=== PATIENT | male | born 1960 | race Two or more races ===

== ENCOUNTER 2023-03-21 01:06 | Inpatient (IN) | payer OTHER, MEDICAID ==
[2023-03-21] VITALS (63 sets, daily range): BP systolic 89–123; BP diastolic 45–81
[~2023-03-21] VITALS: Ht 170.2 cm; Wt 85.1 kg
[2023-03-21] MEDS ORDERED: FUROSEMIDE 100 MG/10ML VIAL IV ONE (01:15)
[2023-03-21] MEDS ORDERED: hydrALAZINE HCL 20 MG/ML VL IV ONE (01:15)
[2023-03-21] MEDS ORDERED: ALBUTEROL SULF 2.5 MG/0.5ML(0.5%) NEB SOLN NEB ONE (01:30)
[2023-03-21] MEDS ORDERED: IPRATROPIUM BROM 0.5 MG/2.5ML INH SOL NEB ONE (01:30)
[2023-03-21] MEDS ORDERED: DexAMETHasone SOD PHOS 10MG/1ML VIAL INJ IV ONE (01:30)
[2023-03-21] MEDS ORDERED: ROCURONIUM 10MG/ML 10ML VIAL IV ONE ×2 (01:53→02:00)
[2023-03-21] MEDS ORDERED: ETOMIDATE (2MG/ML) 20ML VIAL IV ONE ×2 (01:53→02:00)
[2023-03-21 01:54] LABS: Basophils # (auto) 0 10 ^3/uL (0-0.2); Eosinophils # (auto) 0.2 10 ^3/uL (0-0.8); Eosinophils % (auto) 1.3 % (0.0-7.0); Hemoglobin 13.1 g/dL (13.5-17.5); Lymphocytes # (auto) 5.8 10 ^3/uL (0.4-5.4); Neutrophils # (auto) 10.9 10 ^3/uL (1.6-8.6); Nucleated Red Blood Cells % 0.1 %
[2023-03-21 01:56] LABS: Basophils % (auto) 0.1 % (0.0-2.0); Hematocrit 42.2 % (41.0-53.0); Lymphocytes % (auto) 31.9 % (10.0-50.0); Mean Corpuscular Hemoglobin 25.6 pg (28.0-32.0); Mean Corpuscular Hgb Conc. 31.2 g/dL (32.0-36.0); Mean Corpuscular Volume 82.1 fL (80.0-100.0); Monocytes # (auto) 1.3 10 ^3/uL (0-1.3); Monocytes % (auto) 7.1 % (0.0-12.0); Neutrophils % (auto) 59.6 % (37.0-80.0); Red Blood Cells 5.14 10^6/uL (4.5-5.90); Red Cell Distribution Width 17.3 % (11.8-14.3); White Blood Cell 18.3 10^3/uL (4.4-10.8)
[2023-03-21] MEDS ORDERED: PROPOFOL 100 ML IV ONE (01:58)
[2023-03-21] MEDS: PROPOFOL 100 ML IV SCH ×2 (02:10→17:18)
[2023-03-21] MEDS ORDERED: cefTRIAXone 1GM/50ML D5W 50 ML IV ONE (03:15)
[2023-03-21] MEDS ORDERED: AZITHROMYCIN 500MG/ 250ML 250 ML IV ONE (03:15)
[2023-03-21 03:17] LABS: Albumin 2.7 g/dL (3.4-5.0); BUN/Creatinine Ratio 23.1 (10.0-20.0); INR 1.12 (0.9-1.15); Partial Thromboplastin Time 28.4 SEC (24.5-34.5); Potassium 5.3 mmol/L (3.5-5.1)
[2023-03-21 03:19] LABS: Bilirubin, Total 0.2 mg/dL (0.2-1.0); Total Protein 8.6 g/dL (6.4-8.2)
[2023-03-21] MEDS ORDERED: NOREPINEPHRINE 8 MG/250ML KIT 250 ML IV ONE (04:55)
[2023-03-21] MEDS ORDERED: MIDAZOLAM DRIP 50 mg/50mL 50 ML IV ONE (04:55)
[2023-03-21] MEDS: NOREPINEPHRINE 8 MG/250ML KIT 250 ML IV SCH (05:00)
[2023-03-21] MEDS ORDERED: ALBUMIN 25% 100 ML IV ONE (05:15)
[2023-03-21] MEDS: MIDAZOLAM DRIP 50 mg/50mL 50 ML IV SCH ×3 (05:26→17:18)
[2023-03-21] MEDS ORDERED: SODIUM ZIRCONIUM CYCL 10 GM PAK PO ONE (07:15)
[2023-03-21] MEDS ORDERED: ALBUTEROL SULF 2.5 MG/0.5ML(0.5%) NEB SOLN NEB PRN (07:15)
[2023-03-21] MEDS ORDERED: NITROGLYCERIN 0.4 MG SL TAB SL PRN (07:15)
[2023-03-21] MEDS ORDERED: DEXTROSE (50%) 50ML SYRG IV PRN (07:15)
[2023-03-21] MEDS ORDERED: ACETAMINOPHEN 325 MG TAB PO PRN (07:15)
[2023-03-21] MEDS ORDERED: ALBUMIN 25% 50 ML IV ONE (07:15)
[2023-03-21] MEDS ORDERED: MORPHINE SULFATE INJ 2 MG/ml SYRG IV PRN (07:15)
[2023-03-21] MEDS ORDERED: ONDANSETRON HCL 4 MG/2 ML VIAL IV PRN (07:15)
[2023-03-21 08:00] LABS: Urine Bacteria NONE SEEN /hpf (None Seen); Urine Blood 3+ /uL (Negative); Urine Hyaline Cast MOD /lpf (0 - 2); Urine Mucus FEW (None Seen); Urine Specific Gravity 1.017 (1.001-1.035); Urine WBC 61 /hpf (0 - 3)
[2023-03-21] MEDS: PANTOPRAZOLE 40 MG/10 ML VIAL INJ IV SCH (09:27)
[2023-03-21] MEDS: ENOXAPARIN SOD 40 MG/0.4 ML SYRINGE SC SCH (09:27)
[2023-03-21 11:21] LABS: Basophils # (auto) 0 10 ^3/uL (0-0.2); Basophils % (auto) 0.1 % (0.0-2.0); Eosinophils # (auto) 0 10 ^3/uL (0-0.8); Lymphocytes # (auto) 0.9 10 ^3/uL (0.4-5.4); Lymphocytes % (auto) 4.9 % (10.0-50.0); Nucleated Red Blood Cells % 0.1 %
[2023-03-21 11:22] LABS: Hematocrit 35.1 % (41.0-53.0); Mean Corpuscular Hemoglobin 24.9 pg (28.0-32.0); Mean Corpuscular Hgb Conc. 31.5 g/dL (32.0-36.0); Mean Corpuscular Volume 79.2 fL (80.0-100.0); Monocytes # (auto) 0.2 10 ^3/uL (0-1.3); Neutrophils # (auto) 17.9 10 ^3/uL (1.6-8.6); Red Blood Cells 4.43 10^6/uL (4.5-5.90); Red Cell Distribution Width 16.9 % (11.8-14.3); White Blood Cell 19.1 10^3/uL (4.4-10.8)
[2023-03-21 11:37] LABS: Albumin 2.9 g/dL (3.4-5.0); Calcium 8.3 mg/dL (8.5-10.1)
[2023-03-21 11:40] LABS: BUN/Creatinine Ratio 27.2 (10.0-20.0); Bilirubin, Total 0.3 mg/dL (0.2-1.0); Total Protein 8.2 g/dL (6.4-8.2)
[2023-03-21] MEDS: ACCU-CHEK COMFORT CURVE STRIP VI SCH ×2 (12:11→17:22)
[2023-03-21] MEDS: InsuLIN REG 1unit/0.01ml Soln (100units/ml) SC SCH ×2 (12:15→17:23)
[2023-03-21] MEDS: FUROSEMIDE 20 MG/2 ML VIAL IV SCH (17:19)
[2023-03-22] VITALS (91 sets, daily range): BP systolic 90–157; BP diastolic 44–109
[2023-03-22] MEDS: ACCU-CHEK COMFORT CURVE STRIP VI SCH ×4 (00:15→17:34)
[2023-03-22] MEDS: InsuLIN REG 1unit/0.01ml Soln (100units/ml) SC SCH ×4 (00:16→17:46)
[2023-03-22] MEDS: MIDAZOLAM DRIP 50 mg/50mL 50 ML IV SCH ×2 (00:22→05:42)
[2023-03-22 04:23] LABS: Basophils # (auto) 0 10 ^3/uL (0-0.2); Eosinophils # (auto) 0 10 ^3/uL (0-0.8); Hemoglobin 10.7 g/dL (13.5-17.5); Nucleated Red Blood Cells % 0.1 %; Red Cell Distribution Width 16.7 % (11.8-14.3)
[2023-03-22 04:26] LABS: Basophils % (auto) 0.3 % (0.0-2.0); Hematocrit 33.1 % (41.0-53.0); Lymphocytes # (auto) 1.5 10 ^3/uL (0.4-5.4); Lymphocytes % (auto) 11.7 % (10.0-50.0); Mean Corpuscular Hemoglobin 25.7 pg (28.0-32.0); Mean Corpuscular Hgb Conc. 32.4 g/dL (32.0-36.0); Mean Corpuscular Volume 79.4 fL (80.0-100.0); Monocytes # (auto) 0.8 10 ^3/uL (0-1.3); Monocytes % (auto) 6.5 % (0.0-12.0); Neutrophils # (auto) 10.6 10 ^3/uL (1.6-8.6); Neutrophils % (auto) 81.5 % (37.0-80.0); Red Blood Cells 4.16 10^6/uL (4.5-5.90); White Blood Cell 12.9 10^3/uL (4.4-10.8)
[2023-03-22 04:45] LABS: Potassium 3.3 mmol/L (3.5-5.1)
[2023-03-22] MEDS: NOREPINEPHRINE 8 MG/250ML KIT 250 ML IV SCH (04:47)
[2023-03-22 04:49] LABS: Albumin 2.8 g/dL (3.4-5.0); BUN/Creatinine Ratio 36.5 (10.0-20.0); Calcium 8.3 mg/dL (8.5-10.1)
[2023-03-22 04:52] LABS: Bilirubin, Total 0.3 mg/dL (0.2-1.0); Total Protein 7.4 g/dL (6.4-8.2)
[2023-03-22] MEDS: PROPOFOL 100 ML IV SCH (05:41)
[2023-03-22] MEDS: FUROSEMIDE 20 MG/2 ML VIAL IV SCH ×2 (05:42→17:34)
[2023-03-22] MEDS: cefTRIAXone 1GM/50ML D5W 50 ML IV SCH (09:23)
[2023-03-22] MEDS: ENOXAPARIN SOD 40 MG/0.4 ML SYRINGE SC SCH (09:23)
[2023-03-22] MEDS: PANTOPRAZOLE 40 MG/10 ML VIAL INJ IV SCH (09:24)
[2023-03-22] MEDS: AZITHROMYCIN 500MG/ 250ML 250 ML IV SCH (09:24)
[2023-03-22] MEDS: POTASSIUM CHL 20MEQ/100ML 100 ML IV SCH ×3 (12:55→17:34)
[2023-03-22] MEDS ORDERED: hydrALAZINE HCL 20 MG/ML VL IV PRN (17:45)
[2023-03-23] VITALS (30 sets, daily range): BP systolic 121–158; BP diastolic 60–96
[2023-03-23 03:46] LABS: Basophils # (auto) 0.1 10 ^3/uL (0-0.2); Eosinophils # (auto) 0.1 10 ^3/uL (0-0.8); Lymphocytes # (auto) 1.7 10 ^3/uL (0.4-5.4); Monocytes # (auto) 0.7 10 ^3/uL (0-1.3)
[2023-03-23 03:50] LABS: Basophils % (auto) 0.7 % (0.0-2.0); Eosinophils % (auto) 0.7 % (0.0-7.0); Hematocrit 37.3 % (41.0-53.0); Hemoglobin 11.9 g/dL (13.5-17.5); Mean Corpuscular Hemoglobin 25.5 pg (28.0-32.0); Mean Corpuscular Volume 79.8 fL (80.0-100.0); Monocytes % (auto) 7.6 % (0.0-12.0); Neutrophils # (auto) 6.4 10 ^3/uL (1.6-8.6); Nucleated Red Blood Cells % 0.2 %; Red Blood Cells 4.68 10^6/uL (4.5-5.90); Red Cell Distribution Width 16.9 % (11.8-14.3); White Blood Cell 8.9 10^3/uL (4.4-10.8)
[2023-03-23 04:09] LABS: Calcium 8.4 mg/dL (8.5-10.1); Potassium 3.6 mmol/L (3.5-5.1)
[2023-03-23 04:11] LABS: BUN/Creatinine Ratio 32.8 (10.0-20.0)
[2023-03-23] MEDS: NOREPINEPHRINE 8 MG/250ML KIT 250 ML IV SCH (05:00)
[2023-03-23] MEDS: ACCU-CHEK COMFORT CURVE STRIP VI SCH ×5 (06:12→23:58)
[2023-03-23] MEDS: FUROSEMIDE 20 MG/2 ML VIAL IV SCH ×2 (06:12→17:51)
[2023-03-23] MEDS: InsuLIN REG 1unit/0.01ml Soln (100units/ml) SC SCH ×4 (06:30→17:53)
[2023-03-23] MEDS: PANTOPRAZOLE 40 MG/10 ML VIAL INJ IV SCH (09:19)
[2023-03-23] MEDS: cefTRIAXone 1GM/50ML D5W 50 ML IV SCH (09:19)
[2023-03-23] MEDS: ENOXAPARIN SOD 40 MG/0.4 ML SYRINGE SC SCH (09:20)
[2023-03-23] MEDS: AZITHROMYCIN 500MG/ 250ML 250 ML IV SCH (10:15)
[2023-03-23 14:29] LABS: Cholesterol 119 mg/dL (< 200); HDL Cholesterol 26 mg/dL (40-59); LDL Cholesterol 75 mg/dL (< 100); Triglycerides 143 mg/dL (< 150)
[2023-03-23] MEDS ORDERED: POTA-264 (19:21)
[2023-03-23] MEDS ORDERED: CARV25TA55 PO (19:21)
[2023-03-23] MEDS ORDERED: ASPI1CHW5 PO (19:21)
[2023-03-23] MEDS ORDERED: METF-370 PO (19:21)
[2023-03-24 05:00] VITALS: BP 113/65
[2023-03-24 05:13] LABS: Basophils # (auto) 0 10 ^3/uL (0-0.2); Basophils % (auto) 0.2 % (0.0-2.0); Eosinophils # (auto) 0 10 ^3/uL (0-0.8); Eosinophils % (auto) 0.2 % (0.0-7.0)
[2023-03-24 05:15] LABS: Hematocrit 39.1 % (41.0-53.0); Hemoglobin 12.4 g/dL (13.5-17.5); Lymphocytes # (auto) 1.5 10 ^3/uL (0.4-5.4); Lymphocytes % (auto) 8.9 % (10.0-50.0); Mean Corpuscular Hemoglobin 25.6 pg (28.0-32.0); Mean Corpuscular Hgb Conc. 31.6 g/dL (32.0-36.0); Mean Corpuscular Volume 81.1 fL (80.0-100.0); Monocytes # (auto) 0.9 10 ^3/uL (0-1.3); Monocytes % (auto) 5.1 % (0.0-12.0); Neutrophils # (auto) 14.7 10 ^3/uL (1.6-8.6); Neutrophils % (auto) 85.6 % (37.0-80.0); Red Blood Cells 4.82 10^6/uL (4.5-5.90); Red Cell Distribution Width 17.1 % (11.8-14.3); White Blood Cell 17.1 10^3/uL (4.4-10.8)
[2023-03-24 05:30] LABS: Calcium 8.6 mg/dL (8.5-10.1); Potassium 3.2 mmol/L (3.5-5.1)
[2023-03-24] MEDS: ACCU-CHEK COMFORT CURVE STRIP VI SCH ×3 (05:50→18:06)
[2023-03-24] MEDS: InsuLIN REG 1unit/0.01ml Soln (100units/ml) SC SCH ×4 (05:56→18:07)
[2023-03-24] MEDS: FUROSEMIDE 20 MG/2 ML VIAL IV SCH ×2 (05:56→18:10)
[2023-03-24] MEDS ORDERED: REGADENOSON 0.4 MG/5 ML SYRG IV ONE ×2 (08:00)
[2023-03-24 09:04] VITALS: BP 110/67
[2023-03-24] MEDS: cefTRIAXone 1GM/50ML D5W 50 ML IV SCH (09:36)
[2023-03-24] MEDS: ENOXAPARIN SOD 40 MG/0.4 ML SYRINGE SC SCH (10:36)
[2023-03-24] MEDS: PANTOPRAZOLE 40 MG/10 ML VIAL INJ IV SCH (10:36)
[2023-03-24] MEDS: AZITHROMYCIN 500MG/ 250ML 250 ML IV SCH (10:36)
[2023-03-24 14:46] VITALS: BP 110/67
[2023-03-24 16:48] VITALS: BP 126/80
[2023-03-24 21:59] VITALS: BP 125/70
[2023-03-25] MEDS: ACCU-CHEK COMFORT CURVE STRIP VI SCH ×3 (01:15→11:35)
[2023-03-25] MEDS: InsuLIN REG 1unit/0.01ml Soln (100units/ml) SC SCH ×3 (01:16→11:44)
[2023-03-25 05:00] VITALS: BP 100/64
[2023-03-25 05:16] LABS: Basophils # (auto) 0 10 ^3/uL (0-0.2); Eosinophils # (auto) 0.2 10 ^3/uL (0-0.8); Lymphocytes # (auto) 1.7 10 ^3/uL (0.4-5.4); White Blood Cell 8.6 10^3/uL (4.4-10.8)
[2023-03-25 05:19] LABS: Basophils % (auto) 0.6 % (0.0-2.0); Eosinophils % (auto) 2.5 % (0.0-7.0); Hematocrit 36.3 % (41.0-53.0); Hemoglobin 11.8 g/dL (13.5-17.5); Lymphocytes % (auto) 20.4 % (10.0-50.0); Mean Corpuscular Hemoglobin 25.6 pg (28.0-32.0); Mean Corpuscular Hgb Conc. 32.6 g/dL (32.0-36.0); Mean Corpuscular Volume 78.4 fL (80.0-100.0); Monocytes # (auto) 0.8 10 ^3/uL (0-1.3); Neutrophils # (auto) 5.8 10 ^3/uL (1.6-8.6); Neutrophils % (auto) 67.5 % (37.0-80.0); Red Blood Cells 4.62 10^6/uL (4.5-5.90); Red Cell Distribution Width 16.8 % (11.8-14.3)
[2023-03-25 05:44] LABS: Potassium 3.2 mmol/L (3.5-5.1)
[2023-03-25] MEDS: FUROSEMIDE 20 MG/2 ML VIAL IV SCH (05:44)
[2023-03-25 05:50] LABS: BUN/Creatinine Ratio 28.4 (10.0-20.0); Calcium 8.7 mg/dL (8.5-10.1)
[2023-03-25] MEDS: cefTRIAXone 1GM/50ML D5W 50 ML IV SCH (08:57)
[2023-03-25 09:00] VITALS: BP 124/76
[2023-03-25] MEDS: ENOXAPARIN SOD 40 MG/0.4 ML SYRINGE SC SCH (11:35)
[2023-03-25] MEDS: AZITHROMYCIN 500MG/ 250ML 250 ML IV SCH (11:35)
[2023-03-25] MEDS: PANTOPRAZOLE 40 MG/10 ML VIAL INJ IV SCH (11:35)
[2023-03-25] MEDS ORDERED: POTASSIUM CHL 20 Meq TABLET PO ONE (12:45)
[2023-03-25 13:00] VITALS: BP 117/76
[2023-03-25] MEDS ORDERED: AZIT-81 PO (13:18)
[2023-03-25 14:15] VITALS: BP 108/64
== END 2023-03-25 17:25 | disposition home or self-care (01) | DRG 208 ==
LOC: ER 01:06 → EDBD 01:06 → TELE 07:10 → ICU WEST 09:57 → TELE-EAST 03-23 18:20
PROVIDERS: ADMIT Nurse Practitioner; ATTEND Internal Medicine Pulmonary Disease
PROC: 5A1945Z Respiratory Ventilation, 24-96 Consecutive Hours (ICD-10-PCS; principal; 2023-03-21)
PROC: 0BH17EZ Insertion of Endotracheal Airway into Trachea, Via Natural or Artificial Opening (ICD-10-PCS; 2023-03-21)
PROC: 5A09357 Assistance with Respiratory Ventilation, Less than 24 Consecutive Hours, Continuous Positive Airway Pressure (ICD-10-PCS; 2023-03-21)
DX: J96.21 Acute and chronic respiratory failure with hypoxia (principal); J18.9 Pneumonia, unspecified organism; I50.23 Acute on chronic systolic (congestive) heart failure; J44.0 Chronic obstructive pulmonary disease with (acute) lower respiratory infection; J96.22 Acute and chronic respiratory failure with hypercapnia; I16.0 Hypertensive urgency; I11.0 Hypertensive heart disease with heart failure; E11.9 Type 2 diabetes mellitus without complications; E78.5 Hyperlipidemia, unspecified; R31.9 Hematuria, unspecified; D64.9 Anemia, unspecified; I25.10 Atherosclerotic heart disease of native coronary artery without angina pectoris; Z95.1 Presence of aortocoronary bypass graft
CPT/HCPCS: 31500; 36415; 36600; 71045; 78452; 80048; 80053; 80061; 81001; 82805; 82962; 83036; 83605; 83735; 83880; 84443; 84484; 85025; 85610; 85730; 87040; 87070; 87077; 87081; 87186; 87205; 92610; 93005; 93017; 93306; 94002; 94003; 94640; 94660; 96365; 96366; 96367; 96368; 96372; 96375; 97110; 97116; 97163; 97530; 99291; C9113; G0378; J0696; J1100; J1815; J2250; J2704; J3480; P9047

== ENCOUNTER 2023-04-07 15:03 | Inpatient (IN) | payer OTHER, MEDICAID ==
[~2023-04-07] VITALS: Ht 170.2 cm; Wt 82.2 kg
[~2023-04-07 15:03] MED LIST: ASPI1CHW5 PO; CARV25TA55 PO; METF-370 PO; POTA-264
[2023-04-07] MEDS ORDERED: ASPirin 325 MG TAB PO ONE (15:15)
[2023-04-07 15:36] LABS: Basophils # (auto) 0.1 10 ^3/uL (0-0.2); Eosinophils # (auto) 0.2 10 ^3/uL (0-0.8)
[2023-04-07 15:38] LABS: Basophils % (auto) 0.6 % (0.0-2.0); Eosinophils % (auto) 2.2 % (0.0-7.0); Hematocrit 33.5 % (41.0-53.0); Hemoglobin 10.9 g/dL (13.5-17.5); Lymphocytes # (auto) 1.4 10 ^3/uL (0.4-5.4); Lymphocytes % (auto) 15.3 % (10.0-50.0); Mean Corpuscular Hemoglobin 26.3 pg (28.0-32.0); Mean Corpuscular Hgb Conc. 32.5 g/dL (32.0-36.0); Mean Corpuscular Volume 80.8 fL (80.0-100.0); Monocytes # (auto) 0.7 10 ^3/uL (0-1.3); Monocytes % (auto) 7.5 % (0.0-12.0); Neutrophils # (auto) 6.7 10 ^3/uL (1.6-8.6); Neutrophils % (auto) 74.4 % (37.0-80.0); Nucleated Red Blood Cells % 0.1 %; Red Blood Cells 4.15 10^6/uL (4.5-5.90); Red Cell Distribution Width 18.5 % (11.8-14.3); White Blood Cell 9.1 10^3/uL (4.4-10.8)
[2023-04-07] MEDS ORDERED: NITROGLYCERIN 0.4 MG SL TAB SL ONE (15:45)
[2023-04-07 15:56] LABS: Albumin 3.2 g/dL (3.4-5.0); Calcium 8.1 mg/dL (8.5-10.1); Potassium 4.1 mmol/L (3.5-5.1)
[2023-04-07 15:58] LABS: BUN/Creatinine Ratio 23.9 (10.0-20.0)
[2023-04-07 16:01] LABS: Bilirubin, Total 0.2 mg/dL (0.2-1.0); Total Protein 7.3 g/dL (6.4-8.2)
[2023-04-07] MEDS ORDERED: ACETAMINOPHEN 325 MG TAB PO PRN (22:45)
[2023-04-07] MEDS ORDERED: DOCUSATE SOD 100 MG CAP PO PRN (22:45)
[2023-04-07] MEDS ORDERED: ONDANSETRON HCL 4 MG/2 ML VIAL IV PRN (22:45)
[2023-04-07] MEDS ORDERED: MORPHINE SULFATE INJ 2 MG/ml SYRG IV PRN ×2 (22:45→23:30)
[2023-04-07] MEDS ORDERED: NITROGLYCERIN 0.4 MG SL TAB SL PRN (23:30)
[2023-04-08] MEDS: HYDROcodone-ACET 5/325MG TAB PO PRN (04:16)
[2023-04-08] MEDS: SODIUM CHLOR 0.9% PF (SALINE LOCK) 10ML VIAL/SYR IV SCH ×3 (06:00→22:52)
[2023-04-08 06:48] LABS: Basophils # (auto) 0.1 10 ^3/uL (0-0.2); Basophils % (auto) 0.8 % (0.0-2.0); Eosinophils # (auto) 0.1 10 ^3/uL (0-0.8); Eosinophils % (auto) 1.1 % (0.0-7.0); Hematocrit 37.1 % (41.0-53.0); Hemoglobin 11.9 g/dL (13.5-17.5); Lymphocytes # (auto) 1.1 10 ^3/uL (0.4-5.4); Lymphocytes % (auto) 9.4 % (10.0-50.0); Mean Corpuscular Hemoglobin 25.7 pg (28.0-32.0); Mean Corpuscular Hgb Conc. 32.2 g/dL (32.0-36.0); Mean Corpuscular Volume 79.7 fL (80.0-100.0); Monocytes # (auto) 0.7 10 ^3/uL (0-1.3); Monocytes % (auto) 6.2 % (0.0-12.0); Neutrophils # (auto) 9.9 10 ^3/uL (1.6-8.6); Neutrophils % (auto) 82.5 % (37.0-80.0); Red Blood Cells 4.65 10^6/uL (4.5-5.90)
[2023-04-08 07:21] LABS: Albumin 3.4 g/dL (3.4-5.0); Calcium 8.4 mg/dL (8.5-10.1); Potassium 4.7 mmol/L (3.5-5.1)
[2023-04-08 07:24] LABS: BUN/Creatinine Ratio 15.1 (10.0-20.0); Bilirubin, Total 0.4 mg/dL (0.2-1.0)
[2023-04-08 07:25] VITALS: PULSE 122; RESP 16; O2SAT 98
[2023-04-08] MEDS: CARVEDILOL 12.5 MG TAB PO SCH ×2 (09:51→22:52)
[2023-04-08] MEDS: ASPirin 81 mg TAB PO SCH (09:51)
[2023-04-08 19:55] VITALS: PULSE 100; RESP 22; O2SAT 97
[2023-04-08] MEDS ORDERED: IOHEXOL 350 MG/ML 100ML IJ ONE (20:29)
[2023-04-08] MEDS: ATORVASTATIN 20 MG TAB PO SCH (22:51)
[2023-04-09] MEDS: SODIUM CHLOR 0.9% PF (SALINE LOCK) 10ML VIAL/SYR IV SCH ×3 (06:12→21:13)
[2023-04-09 08:43] LABS: Urine Bacteria NONE SEEN /hpf (None Seen); Urine Blood Negative /uL (Negative); Urine Specific Gravity 1.035 (1.001-1.035); Urine WBC <1 /hpf (0 - 3)
[2023-04-09 08:55] VITALS: PULSE 80; RESP 16
[2023-04-09] MEDS: CARVEDILOL 12.5 MG TAB PO SCH ×2 (11:19→21:12)
[2023-04-09] MEDS: ASPirin 81 mg TAB PO SCH (11:19)
[2023-04-09 11:20] VITALS: PULSE 86; RESP 18; O2SAT 96
[2023-04-09] MEDS: ENOXAPARIN SOD 40 MG/0.4 ML SYRINGE SC SCH (12:15)
[2023-04-09 12:59] VITALS: BP 112/66; PULSE 72; RESP 20; TEMP 97.2; O2SAT 98
[2023-04-09 14:06] LABS: INR 1.12 (0.9-1.15); Partial Thromboplastin Time 25.1 SEC (24.5-34.5)
[2023-04-09 17:00] VITALS: BP 95/45; PULSE 77; RESP 14; TEMP 97.3; O2SAT 98
[2023-04-09] MEDS: FUROSEMIDE 20 MG/2 ML VIAL IV SCH (18:17)
[2023-04-09 20:00] VITALS: BP 120/77; PULSE 76; PULSE 84; RESP 19; TEMP 97.8; O2SAT 98
[2023-04-09] MEDS: ATORVASTATIN 20 MG TAB PO SCH (21:12)
[2023-04-09 22:00] VITALS: BP 120/77; PULSE 76; RESP 19; TEMP 97.8; O2SAT 98
[2023-04-10] VITALS (10 sets, daily range): BP systolic 99–134; BP diastolic 51–85; PULSE 62–76; RESP 12–26; TEMP 97.2–98.2; O2SAT 94–99
[2023-04-10] MEDS: EMPAGLIFLOZIN 10 MG TAB PO SCH (06:06)
[2023-04-10] MEDS: SODIUM CHLOR 0.9% PF (SALINE LOCK) 10ML VIAL/SYR IV SCH ×3 (06:08→22:32)
[2023-04-10] MEDS: ASPirin 81 mg TAB PO SCH (10:00)
[2023-04-10] MEDS: POTASSIUM CHL 10 Meq TABLET PO SCH (10:00)
[2023-04-10] MEDS: CARVEDILOL 12.5 MG TAB PO SCH ×2 (10:00→22:31)
[2023-04-10] MEDS: ENOXAPARIN SOD 40 MG/0.4 ML SYRINGE SC SCH (10:00)
[2023-04-10] MEDS: FUROSEMIDE 20 MG/2 ML VIAL IV SCH (10:00)
[2023-04-10] MEDS ORDERED: IODIXANOL 320MG/ML 100ML BTL IV ONE ×2 (10:17→11:03)
[2023-04-10] MEDS ORDERED: LIDOCAINE 2%HCL (LOCAL ANESTH.) INJ 20ML MDV ONE (10:17)
[2023-04-10] MEDS ORDERED: ANGIOMAX 250 MG VIAL IV ONE (10:19)
[2023-04-10] MEDS ORDERED: fentaNYL CITRATE 100 MCG/2 ML VL ONE (10:19)
[2023-04-10] MEDS ORDERED: MIDAZOLAM HCL 2MG/2ML 2ml VIAL (1mg/ml) ONE (10:19)
[2023-04-10] MEDS ORDERED: SODIUM CHL 0.9% 0 ML ONE (10:19)
[2023-04-10] MEDS: HYDROcodone-ACET 5/325MG TAB PO PRN (20:57)
[2023-04-10] MEDS: ATORVASTATIN 20 MG TAB PO SCH (22:32)
[2023-04-11 05:52] VITALS: BP_SYST 103; BP_SYST 154; BP_DIAS 71; BP_DIAS 77; PULSE 63; PULSE 73; RESP 18; TEMP 98; TEMP 98.6; O2SAT 95; O2SAT 99
[2023-04-11] MEDS: SODIUM CHLOR 0.9% PF (SALINE LOCK) 10ML VIAL/SYR IV SCH ×2 (07:02→15:15)
[2023-04-11] MEDS: EMPAGLIFLOZIN 10 MG TAB PO SCH (07:02)
[2023-04-11 08:00] VITALS: PULSE 72; PULSE 76; RESP 18; O2SAT 96
[2023-04-11 09:00] VITALS: BP 143/71; PULSE 72; RESP 18; TEMP 97.3; O2SAT 96
[2023-04-11] MEDS: ASPirin 81 mg TAB PO SCH (09:13)
[2023-04-11] MEDS: ENOXAPARIN SOD 40 MG/0.4 ML SYRINGE SC SCH (09:13)
[2023-04-11] MEDS: FUROSEMIDE 20 MG/2 ML VIAL IV SCH (09:13)
[2023-04-11] MEDS: CARVEDILOL 12.5 MG TAB PO SCH (09:13)
[2023-04-11] MEDS: POTASSIUM CHL 10 Meq TABLET PO SCH (09:14)
[2023-04-11] MEDS ORDERED: ATOR20TA PO (10:50)
[2023-04-11] MEDS ORDERED: FURO1TAB33 PO (10:50)
[2023-04-11] MEDS ORDERED: EMPA1TAB PO (10:50)
[2023-04-11 13:00] VITALS: BP 114/80; PULSE 72; RESP 16; TEMP 97.8; O2SAT 97
[2023-04-11 13:39] VITALS: BP 114/80; PULSE 72; RESP 16; TEMP 97.8; O2SAT 97
== END 2023-04-11 15:08 | disposition home or self-care (01) | DRG 286 ==
LOC: ER 15:03 → TELE 23:30 → TELE-EAST 04-09 10:18
PROVIDERS: ADMIT Family Medicine; ATTEND Family Medicine
PROC: 4A023N7 Measurement of Cardiac Sampling and Pressure, Left Heart, Percutaneous Approach (ICD-10-PCS; principal; 2023-04-10)
PROC: B211YZZ Fluoroscopy of Multiple Coronary Arteries using Other Contrast (ICD-10-PCS; 2023-04-10)
PROC: B215YZZ Fluoroscopy of Left Heart using Other Contrast (ICD-10-PCS; 2023-04-10)
PROC: B41FYZZ Fluoroscopy of Right Lower Extremity Arteries using Other Contrast (ICD-10-PCS; 2023-04-10)
PROC: B212YZZ Fluoroscopy of Single Coronary Artery Bypass Graft using Other Contrast (ICD-10-PCS; 2023-04-10)
PROC: B218YZZ Fluoroscopy of Left Internal Mammary Bypass Graft using Other Contrast (ICD-10-PCS; 2023-04-10)
PROC: B310YZZ Fluoroscopy of Thoracic Aorta using Other Contrast (ICD-10-PCS; 2023-04-10)
DX: I25.110 Atherosclerotic heart disease of native coronary artery with unstable angina pectoris (principal); I50.23 Acute on chronic systolic (congestive) heart failure; I24.9 Acute ischemic heart disease, unspecified; E78.00 Pure hypercholesterolemia, unspecified; E78.5 Hyperlipidemia, unspecified; E11.9 Type 2 diabetes mellitus without complications; I11.0 Hypertensive heart disease with heart failure; E66.9 Obesity, unspecified; Z83.2 Family history of diseases of the blood and blood-forming organs and certain disorders involving the immune mechanism; Z95.1 Presence of aortocoronary bypass graft; Z98.61 Coronary angioplasty status; Z68.28 Body mass index [BMI] 28.0-28.9, adult
CPT/HCPCS: 36415; 71045; 71275; 75600; 75710; 80053; 81001; 83880; 84484; 85025; 85379; 85610; 85730; 87081; 93005; 93459; 93970; 96374; 99152; G0378; J2250; Q9967

== ENCOUNTER 2023-09-26 14:20 | Inpatient (IN) | payer OTHER, MEDICAID ==
[~2023-09-26] VITALS: Ht 170.2 cm; Wt 91.8 kg
[~2023-09-26 14:20] MED LIST changes: +ATOR20TA PO; +EMPA1TAB PO; +FURO1TAB33 PO
[2023-09-26 16:05] LABS: Basophils # (auto) 0.1 10 ^3/uL (0-0.2); Basophils % (auto) 0.4 % (0.0-2.0); Eosinophils # (auto) 0.1 10 ^3/uL (0-0.8); Eosinophils % (auto) 0.6 % (0.0-7.0); Hematocrit 36.4 % (41.0-53.0); Hemoglobin 11.7 g/dL (13.5-17.5); Lymphocytes # (auto) 1.6 10 ^3/uL (0.4-5.4); Lymphocytes % (auto) 9.3 % (10.0-50.0); Mean Corpuscular Hemoglobin 26.1 pg (28.0-32.0); Mean Corpuscular Hgb Conc. 32.2 g/dL (32.0-36.0); Mean Corpuscular Volume 80.8 fL (80.0-100.0); Monocytes # (auto) 0.7 10 ^3/uL (0-1.3); Monocytes % (auto) 3.7 % (0.0-12.0); Neutrophils # (auto) 15.2 10 ^3/uL (1.6-8.6); Nucleated Red Blood Cells % 0.1 %; Red Blood Cells 4.51 10^6/uL (4.5-5.90); Red Cell Distribution Width 17.4 % (11.8-14.3); White Blood Cell 17.6 10^3/uL (4.4-10.8)
[2023-09-26 16:20] LABS: Albumin 4.2 g/dL (3.2-4.8); Alkaline Phosphatase 112 U/L (46-116); Anion Gap 10 (5-15); Aspartate Aminotransferase 13 U/L (13-40); BUN/Creatinine Ratio 14.8 (10.0-20.0); Blood Urea Nitrogen 13 mg/dL (9-23); Calcium 9.2 mg/dL (8.5-10.1); Carbon Dioxide 26 mmol/L (20-30); Chloride 99 mmol/L (98-107); Glucose 218 mg/dL (74-106); Potassium 3.8 mmol/L (3.5-5.1); Sodium 135 mmol/L (136-145)
[2023-09-26 16:21] LABS: Bilirubin, Total 0.4 mg/dL (0.2-1.0)
[2023-09-26 16:22] LABS: Alanine Aminotransferase < 9 U/L (7-40)
[2023-09-26 16:29] LABS: CRP High Sensitivity 9.51 mg/dL (<1.0)
[2023-09-26] MEDS ORDERED: FUROSEMIDE 40 MG/4 ML VIAL IV ONE (16:30)
[2023-09-26 16:39] LABS: Magnesium 2.1 mg/dL (1.6-2.6)
[2023-09-26] MEDS ORDERED: PIPERACILLIN-TAZOB 3.375GM 100 ML IV ONE (17:00)
[2023-09-26] MEDS ORDERED: DEXTROSE (50%) 50ML SYRG IV PRN (18:45)
[2023-09-26 21:30] LABS: Urine Bacteria FEW /hpf (None Seen); Urine Blood Negative /uL (Negative); Urine Clarity Clear (Clear); Urine Color Colorless (Yellow); Urine Protein, UAD Negative (Negative); Urine Specific Gravity 1.032 (1.001-1.035); Urine Urobilinogen Normal (Negative); Urine WBC 2 /hpf (0 - 3)
[2023-09-26] MEDS: ACCU-CHEK COMFORT CURVE STRIP VI SCH (21:32)
[2023-09-26] MEDS: cefTRIAXone 1GM/50ML D5W 50 ML IV SCH (21:46)
[2023-09-26] MEDS: SACUBITRIL-VALSARTAN 24mg/26mg TAB PO SCH (21:48)
[2023-09-26] MEDS: CARVEDILOL 12.5 MG TAB PO SCH (21:49)
[2023-09-26] MEDS: InsuLIN REG 1unit/0.01ml Soln (100units/ml) SC SCH (21:50)
[2023-09-26] MEDS: AZITHROMYCIN 500MG/ 250ML 250 ML IV SCH (21:57)
[2023-09-27] VITALS (10 sets, daily range): BP systolic 117–128; BP diastolic 72–83; PULSE 76–90; RESP 16–21; TEMP 97–97.8; O2SAT 94–99
[2023-09-27] MEDS ORDERED: MORPHINE SULFATE INJ 2 MG/ml SYRG IV ONE (01:30)
[2023-09-27] MEDS ORDERED: ONDANSETRON HCL 4 MG/2 ML VIAL IV ONE (01:30)
[2023-09-27 05:15] LABS: Basophils # (auto) 0 10 ^3/uL (0-0.2); Basophils % (auto) 0.5 % (0.0-2.0); Eosinophils # (auto) 0.1 10 ^3/uL (0-0.8); Eosinophils % (auto) 1.4 % (0.0-7.0); Hematocrit 35.7 % (41.0-53.0); Hemoglobin 11.5 g/dL (13.5-17.5); Lymphocytes # (auto) 1.4 10 ^3/uL (0.4-5.4); Lymphocytes % (auto) 14.2 % (10.0-50.0); Mean Corpuscular Hemoglobin 26.1 pg (28.0-32.0); Mean Corpuscular Hgb Conc. 32.1 g/dL (32.0-36.0); Mean Corpuscular Volume 81.1 fL (80.0-100.0); Monocytes # (auto) 0.7 10 ^3/uL (0-1.3); Monocytes % (auto) 7.1 % (0.0-12.0); Neutrophils # (auto) 7.4 10 ^3/uL (1.6-8.6); Neutrophils % (auto) 76.8 % (37.0-80.0); Red Cell Distribution Width 17.1 % (11.8-14.3); White Blood Cell 9.6 10^3/uL (4.4-10.8)
[2023-09-27 05:26] LABS: Albumin 3.7 g/dL (3.2-4.8); Alkaline Phosphatase 95 U/L (46-116); Anion Gap 8 (5-15); Aspartate Aminotransferase 12 U/L (13-40); BUN/Creatinine Ratio 19.5 (10.0-20.0); Bilirubin, Total 0.3 mg/dL (0.2-1.0); Blood Urea Nitrogen 16 mg/dL (9-23); Calcium 8.8 mg/dL (8.5-10.1); Carbon Dioxide 27 mmol/L (20-30); Chloride 102 mmol/L (98-107); Glucose 161 mg/dL (74-106); Potassium 3.7 mmol/L (3.5-5.1); Sodium 137 mmol/L (136-145); Total Protein 7.4 g/dL (5.7-8.2)
[2023-09-27 05:28] LABS: Alanine Aminotransferase 9 U/L (7-40)
[2023-09-27] MEDS: FUROSEMIDE 20 MG/2 ML VIAL IV SCH ×2 (06:00→18:19)
[2023-09-27] MEDS: ACCU-CHEK COMFORT CURVE STRIP VI SCH ×4 (06:57→21:16)
[2023-09-27] MEDS: InsuLIN REG 1unit/0.01ml Soln (100units/ml) SC SCH ×4 (06:58→21:25)
[2023-09-27] MEDS ORDERED: SACU1TAB PO (10:04)
[2023-09-27] MEDS ORDERED: EMPA1TAB3 PO (10:04)
[2023-09-27] MEDS ORDERED: POTA10TA51 PO (10:04)
[2023-09-27] MEDS ORDERED: ASPI-543 PO (10:04)
[2023-09-27] MEDS: cefTRIAXone 1GM/50ML D5W 50 ML IV SCH (11:30)
[2023-09-27] MEDS: ASPirin 81 mg TAB PO SCH (11:31)
[2023-09-27] MEDS: SACUBITRIL-VALSARTAN 24mg/26mg TAB PO SCH ×2 (11:31→21:15)
[2023-09-27] MEDS: CARVEDILOL 12.5 MG TAB PO SCH ×2 (11:32→21:15)
[2023-09-27] MEDS: AZITHROMYCIN 500MG/ 250ML 250 ML IV SCH (20:47)
[2023-09-27] MEDS ORDERED: ATORVASTATIN 20 MG TAB PO SCH (22:00)
[2023-09-28 05:00] VITALS: BP 99/64; PULSE 72; RESP 20; TEMP 97.7; O2SAT 98
[2023-09-28 05:54] LABS: Eosinophils # (auto) 0.1 10 ^3/uL (0-0.8); Hemoglobin 12.2 g/dL (13.5-17.5); Lymphocytes # (auto) 1.5 10 ^3/uL (0.4-5.4); Red Cell Distribution Width 17.3 % (11.8-14.3)
[2023-09-28 05:57] LABS: Basophils # (auto) 0 10 ^3/uL (0-0.2); Basophils % (auto) 0.6 % (0.0-2.0); Hematocrit 38.3 % (41.0-53.0); Lymphocytes % (auto) 20.4 % (10.0-50.0); Mean Corpuscular Hgb Conc. 31.7 g/dL (32.0-36.0); Mean Corpuscular Volume 82.1 fL (80.0-100.0); Monocytes # (auto) 0.7 10 ^3/uL (0-1.3); Monocytes % (auto) 9.5 % (0.0-12.0); Neutrophils # (auto) 5.1 10 ^3/uL (1.6-8.6); Neutrophils % (auto) 67.5 % (37.0-80.0); Nucleated Red Blood Cells % 0.1 %; Red Blood Cells 4.67 10^6/uL (4.5-5.90); White Blood Cell 7.5 10^3/uL (4.4-10.8)
[2023-09-28 06:00] LABS: Albumin 3.7 g/dL (3.2-4.8); Alkaline Phosphatase 91 U/L (46-116); Anion Gap 8 (5-15); Aspartate Aminotransferase 16 U/L (13-40); BUN/Creatinine Ratio 16.9 (10.0-20.0); Bilirubin, Total 0.3 mg/dL (0.2-1.0); Blood Urea Nitrogen 12 mg/dL (9-23); Carbon Dioxide 25 mmol/L (20-30); Chloride 104 mmol/L (98-107); Glucose 122 mg/dL (74-106); Potassium 3.7 mmol/L (3.5-5.1); Sodium 137 mmol/L (136-145); Total Protein 7.4 g/dL (5.7-8.2)
[2023-09-28] MEDS: FUROSEMIDE 20 MG/2 ML VIAL IV SCH (06:00)
[2023-09-28 06:10] LABS: Alanine Aminotransferase < 9 U/L (7-40)
[2023-09-28] MEDS: ACCU-CHEK COMFORT CURVE STRIP VI SCH ×2 (06:28→12:01)
[2023-09-28] MEDS: InsuLIN REG 1unit/0.01ml Soln (100units/ml) SC SCH ×2 (06:36→12:01)
[2023-09-28 08:00] VITALS: PULSE 66; PULSE 68; O2SAT 96
[2023-09-28 08:29] LABS: Hepatitis B Surface Antigen Negative (Negative)
[2023-09-28 08:51] LABS: Hepatitis C Antibody Negative (Negative)
[2023-09-28 09:01] VITALS: BP 122/71; PULSE 69; RESP 18; TEMP 97.9; O2SAT 95
[2023-09-28] MEDS ORDERED: CARV3.1240 PO (09:28)
[2023-09-28] MEDS ORDERED: IBUP1TAB5 PO (09:28)
[2023-09-28] MEDS ORDERED: PANT40T PO (09:28)
[2023-09-28] MEDS: ASPirin 81 mg TAB PO SCH (09:54)
[2023-09-28] MEDS: cefTRIAXone 1GM/50ML D5W 50 ML IV SCH (09:54)
[2023-09-28] MEDS: CARVEDILOL 12.5 MG TAB PO SCH (09:54)
[2023-09-28] MEDS: SACUBITRIL-VALSARTAN 24mg/26mg TAB PO SCH (09:54)
[2023-09-28 11:56] VITALS: BP 94/52; PULSE 64; RESP 20; TEMP 97.7; O2SAT 98
[2023-09-28 12:58] VITALS: BP 94/52; PULSE 64; RESP 20; TEMP 97.7; O2SAT 98
[2023-09-28] MEDS ORDERED: AZITHROMYCIN 250 MG TAB PO SCH (21:00)
== END 2023-09-28 15:22 | disposition home or self-care (01) | DRG 177 ==
LOC: ER 14:20 → TELE 18:44 → TELE-CENTR 09-27 09:09
PROVIDERS: ADMIT Internal Medicine Geriatric Medicine; ATTEND Internal Medicine Geriatric Medicine
DX: J15.69 Pneumonia due to other Gram-negative bacteria (principal); I50.41 Acute combined systolic (congestive) and diastolic (congestive) heart failure; J15.9 Unspecified bacterial pneumonia; I25.10 Atherosclerotic heart disease of native coronary artery without angina pectoris; E11.65 Type 2 diabetes mellitus with hyperglycemia; D72.829 Elevated white blood cell count, unspecified; E78.5 Hyperlipidemia, unspecified; Z95.1 Presence of aortocoronary bypass graft
CPT/HCPCS: 36415; 71045; 80053; 81001; 82962; 83036; 83605; 83735; 83880; 84484; 85025; 86141; 86803; 87040; 87340; 93306; 93970; G0378; J1815; J2543

== ENCOUNTER 2025-09-06 10:31 | Emergency (ER) | payer OTHER, MEDICAID ==
[~2025-09-06] VITALS: Ht 170.2 cm; Wt 101.3 kg
[~2025-09-06 10:31] MED LIST changes: +ASPI-543 PO; -ASPI1CHW5 PO; -ATOR20TA PO; -CARV25TA55 PO; +CARV3.1240 PO; -EMPA1TAB PO; +EMPA1TAB3 PO; +IBUP1TAB5 PO; -METF-370 PO; +PANT40T PO; -POTA-264; +POTA-36 PO; +SACU1TAB PO
--- NOTE | 2025-09-06 15:25 | ED.PDOC ---
History of Present Illness HPI Comments 64 y.o male with PMHx of DM, CHF, HTN, presents to the ED for a chief complaint of a sore throat x 3 days. Patient reports pain has increased to a 10/10 and is feeling general malaise. He denies any fever, chills, nausea, vomiting or SOB. Chief Complaint: Flu like Time Seen by MD: 14:48 Primary Care Provider: ALVINO DILLARD Reviewed Notes: Nurses Notes, Medications, Allergies Allergies: Coded Allergies: NO KNOWN ALLERGIES (Unverified , 03/21/23) Home Meds Active Scripts Furosemide (Lasix) 20 Mg Tb, 1 TAB PO DAILY, #90 TAB 1 Refill Prov:STEVIE JOSEPH MD 04/11/23 Reported Medications Carvedilol (Carvedilol) 3.125 Mg Tab, 1 TAB PO DAILY 09/28/23 Ibuprofen Micronized (Ibuprofen) 600 Mg Tab, 1 TAB PO TID PRN for PAIN SCALE 1 THRU 6 09/28/23 Pantoprazole Sodium Sesquihydr (Pantoprazole Sodium) 40 Mg Tab, 1 TAB PO DAILY 09/28/23 Sacubitril-Valsartan (Entresto 24-26 mg) 1 Tab Tab, 1 TAB PO BID, TAB 09/27/23 Aspirin (Aspir-Low) 81 Mg Tab, 81 MG PO DAILY for 30 Days, MG 09/27/23 Empagliflozin (Jardiance) 25 Mg Tab, 25 MG PO DAILY, TAB 09/27/23 Potassium Chloride (POTASSIUM CHLORIDE CR) 10 Meq Tb, 10 MEQ PO DAILY, TAB 09/27/23 Information Source: Patient Mode of Arrival: Ambulatory Severity: Moderate Timing: Days (3) Duration: Since onset Past Medical History PAST MEDICAL HISTORY: CHF, DM, High Lipids, HTN Surgical History: CABG Family History Family History: Reviewed,noncontributory to illness Social History Smoker: Non-Smoker Alcohol: Denies ETOH Use Drugs: Denies Drug Use Lives In: Home Constitutional: reports: malaise; denies: chills, diaphoresis, fatigue, fever, sweats, weakness, others EENTM: reports: throat pain, throat swelling; denies: blurred vision, double vision, ear bleeding, ear discharge, ear drainage, ear pain, ear ringing, eye pain, eye redness, hearing loss, mouth pain, mouth swelling, nasal discharge, nose bleeding, nose congestion, nose pain, photophobia, tearing, voice changes, others Respiratory: denies: cough, hemoptysis, orthopnea, SOB at rest, shortness of breath, SOB with excertion, stridor, wheezing, others Cardiovascular: denies: chest pain, dizzy spells, diaphoresis, Dyspnea on exertion, edema, irregular heart beat, left arm pain, lightheadedness, palpitations, PND, syncope, others Gastrointestinal: denies: abdomen distended, abdominal pain, blood streaked bowels, constipated, diarrhea, dysphagia, difficulty swallowing, hematemesis, melena, nausea, poor appetite, poor fluid intake, rectal bleeding, rectal pain, vomiting, others Genitourinary: denies: burning, dysuria, flank pain, frequency, hematuria, incontinence, penile discharge, penile sore, pain, testicle pain, testicle swelling, urgency, others Neurological: denies: dizziness, fainting, headache, left sided numbness, left sided weakness, numbness, paresthesia, pre-existing deficit, right sided numbness, right sided weakness, seizure, speech problems, tingling, tremors, weakness, others Musculoskeletal: denies: back pain, gout, joint pain, joint swelling, muscle pain, muscle stiffness, neck pain, others Integumetry: denies: bruises, change in color, change in hair/nails, dryness, laceration, lesions, lumps, rash, wounds, others Allergic/Immunocompromised: denies: Difficulty Healing, Frequent Infections, Hives, Itching, others Hematologic/Lymphatic: denies: anemia, blood clots, easy bleeding, easy bruising, swollen glands, others Endocrine: denies: excessive hunger, excessive sweating, excessive thirst, excessive urination, flushing, intolerance to cold, intolerance to heat, unexplained weight gain, unexplained weight loss, others Psychiatric: denies: anxiety, bipolar disorder, depression, hopeless, panic disorder, schizophrenia, sleepless, suicidal, others All Other Systems: Reviewed and Negative Physical Exam General Appearance: Moderate Distress, Obese HEENT: Normal ENT Inspection, PERRL/EOMI, Pharyngeal Erythema Neck: Lymphadenopathy (R), Lymphadenopathy (L) Respiratory: Chest Non-Tender, Lungs Clear, No Accessory Muscle Use, No Respiratory Distress, Normal Breath Sounds Cardiovascular: No Edema, No JVD, No Murmur, No Gallop, Normal Peripheral Pulses, Regular Rate/Rhythm Breast Exam: Deferred Gastrointestinal: No Organomegaly, Non Tender, No Pulsatile Mass, Normal Bowel Sounds, Soft Genitalia: Deferred Pelvic: Deferred Rectal: Deferred Extremities: No calf tenderness, Normal capillary refill, Normal inspection, Normal range of motion, Non-tender, No pedal edema Neurologic: Alert, machine fitter II-XII nml as Tested, No Motor Deficits, Normal Affect, Normal Mood, No Sensory Deficits Cerebellar Function: Normal Reflexes: Normal Skin: Dry, Normal Color, Warm Peripheral Pulses: 1+ carotid (R), 1+ carotid (L) Lymphatic: No Adenopathy Was a procedure done? Was a procedure done?: No Differential Dx Considerations may include: Viral syndrome, Viral Pharyngitis, Strep Throat, Tonsillitis X-Ray, Labs, Meds, VS Vital Signs Date Time Temp Pulse Resp B/P (MAP) Pulse Ox O2 Delivery O2 Flow Rate FiO2 09/06/25 10:37 98.1 107 14 144/77 96 98.1 X-Ray, Labs, Meds, VS Comment Course in the [facility] patient came in complaining of flu-like syndrome for the past three days with also vomiting cough and congestion and sore throat Patient we will be treated adequately and discharged home to follow up with his PCP Time of 1ST Reevaluation: 15:25 Reevaluation 1ST: Unchanged Time of 2ND Reevaluation: 15:27 Reevaluation 2ND: Unchanged Consultation: PCP Patient Education/Counseling: Diagnosis, Treatment, Prognosis, Need For Follow Up Family Education/Counseling: Diagnosis, Treatment, Prognosis, Need For Follow Up, No Family Present SEPSIS Sepsis Screen Date sepsis recognized/suspect: Sep 06, 2025 Time Sepsis recognized/suspect: 1037 Recent Procedure: No On Antibiotic Therapy: No Respiratory Rate >20: No Heart Rate >90: No Temp<36 C (96.8 F) or >38.3 C: No SBP <90 or MAP <65 mmHG: No New Acute Mental Status Change: No Is the patient on CPAP, BIPAP,: No Vital Signs Date Time Temp Pulse Resp B/P (MAP) Pulse Ox O2 Delivery O2 Flow Rate FiO2 09/06/25 10:37 98.1 107 14 144/77 96 98.1 Departure 1 Departure Time of Disposition: 15:27 Impression: Primary Impression: Cough with congestion of paranasal sinus Additional Impression: Pharyngitis Qualified Codes: J02.9 - Acute pharyngitis, unspecified Disposition: HOME / SELF CARE / HOMELESS Condition: Fair Additional Instructions: Follow up with your PCP e-Prescriptions Promethazine HCl (Promethazine Hydrochlorid) 6.25 Mg/5 Ml Estefany 12.5 MG PO TID for 10 Days, #300 ML Prov: CHAZ TAMEZ MD 09/06/25 Azithromycin (Zithromax) 500 Mg Tab 1 TAB PO DAILY for 5 Days, #5 TAB Prov: CHAZ TAMEZ MD 09/06/25 Discharged With: Self Critical Care Note Critical Care Time?: No Stability Stability form required: No I personally scribed for CHAZ TAMEZ MD ([email or web address]) on 09/06/25 at 15:25. Electronically submitted by Danica Murillo ([facility]). CHAZ TAMEZ MD Sep 06, 2025 15:25
[2025-09-06] MEDS ORDERED: AZIT500T PO (15:30)
[2025-09-06] MEDS ORDERED: PROM5SOL PO (15:30)
[2025-09-06 16:24] VITALS: BP 124/86; PULSE 98; RESP 18; TEMP 98.2; O2SAT 100
== END 2025-09-06 16:26 | disposition home or self-care (01) ==
LOC: ER 10:31
DX: J02.9 Acute pharyngitis, unspecified (principal); R05.9 Cough, unspecified; I11.0 Hypertensive heart disease with heart failure; I50.9 Heart failure, unspecified; E11.9 Type 2 diabetes mellitus without complications; E78.5 Hyperlipidemia, unspecified; Z79.899 Other long term (current) drug therapy; Z95.1 Presence of aortocoronary bypass graft; Z79.84 Long term (current) use of oral hypoglycemic drugs; Z79.82 Long term (current) use of aspirin